=== PATIENT | male | born 1950 | race Caucasian/White ===

== ENCOUNTER → 2017-01-17 | Outpatient (CLI) | payer MEDICARE ==
--- NOTE | 2017-01-17 21:09 | CT ---
EXAMINATION TYPE: CT angio neck DATE OF EXAM: 01/17/2017 HISTORY: Carotid stenosis. COMPARISON: NONE CT DLP: 539.00 mGycm. Automated Exposure Control for Dose Reduction was Utilized. TECHNIQUE: CTA scan of the neck is performed with IV Contrast, patient injected with 65 mL of Omnipa que 350, axial images are obtained, coronal and sagittal reformatted images are reviewed. Three-D rec onstructed images are created on an independent workstation and reviewed. FINDINGS: There is opacification of the right maxillary sinus. There is arterial flow in the common internal and external carotid arteries bilaterally. There is sig nificant narrowing of the lumen of the proximal left common carotid artery. There is normal branching pattern of the great vessels on the aortic arch. There is bilateral arterial flow in the vertebral a rteries. There is a segment of the distal right common carotid artery with significant luminal narrowing. Ther e is intraluminal thrombus. IMPRESSION: There is severe right maxillary sinusitis. There is a 3 cm segment of thrombus in the distal right common carotid artery with lumen narrowing of more than 80%. There is a 3 cm segment of left mid common carotid artery with luminal narrowing of 60-70% due to thr ombus. There is bilateral redundant distal internal carotid arteries at the skull base without eviden ce of stenosis.
== END | disposition home or self-care (01) ==
LOC: RADCTMAIN 17:00
PROVIDERS: ATTEND Internal Medicine Interventional Cardiology
DX: I65.22 Occlusion and stenosis of left carotid artery (principal)
CPT/HCPCS: 70498; Q9967

== ENCOUNTER 2020-12-29 11:42 | Emergency (ER) | payer MEDICARE ==
[2020-12-29 11:48] VITALS: TEMP 98
--- NOTE | 2020-12-29 13:34 | ED ---
ENT HPI - General Chief complaint: ENT Stated complaint: Unable to Speak (Swallowed Prosthetic) Time Seen by Provider: 12/29/20 13:11 Source: patient, family, RN notes reviewed Mode of arrival: ambulatory Limitations: language barrier (Tracheostomy), physical limitation - History of Present Illness Initial comments: 70-year-old white male patient alert and oriented 4 sitting in the chair at bedside states that he was cleaning his tracheostomy and the collar came off and he ingested it. Patient is not sure if he actually swallowed it or if it is st uck in his trachea. Patient states for several hours had been trying to pick at it to see if he can get it out himself but caused some bleeding. Patient denies any shortness of breath or chest pain. Denies any cough. Patient states he called Dr. Bruce who told him to come to the emergency room. Oxygen saturation 89% patient states his oxygen level is normally low. Patient has a history of vocal cord cancer, with tracheotomy, diabetes, hypertension, and coronary artery disease. Patient states pain is 2 out of 10 at this time there is no active bleeding MD complaint: foreign body (Ingestion of the plastic collar of his tracheostomy) -: hour(s) (4) Severity: mild Severity scale (1-10): 2 Quality: aching Consistency: constant Improves with: none Worsens with: other (Trying to get the foreign body out) - Related Data Home Medications Medication Instructions Recorded Confirmed Ascorbic Acid [Vitamin C] 500 mg PO DAILY PRN 01/02/16 12/29/20 Cholecalciferol [Vitamin D3 (25 1,000 unit PO DAILY 01/02/16 12/29/20 Mcg = 1000 Iu)] Cyanocobalamin [Vitamin B-12] 500 mcg PO DAILY 01/02/16 12/29/20 Metoprolol Tartrate [Lopressor] 25 mg PO BID 01/02/16 12/29/20 Omeprazole 20 mg PO HS 01/02/16 12/29/20 hydroCHLOROthiazide [Hydrodiuril] 25 mg PO DAILY 01/02/16 12/29/20 lisinopriL [Zestril] 20 mg PO BID 01/02/16 12/29/20 metFORMIN HCL [Glucophage] 1,000 mg PO AC-BID 01/02/16 12/29/20 Apixaban [Eliquis] 5 mg PO BID 12/29/20 12/29/20 Aspirin EC [Ecotrin] 325 mg PO DAILY 12/29/20 12/29/20 Atorvastatin [Lipitor] 20 mg PO DAILY 12/29/20 12/29/20 Clopidogrel [Plavix] 75 mg PO DAILY 12/29/20 12/29/20 Folic Acid 1 mg PO DAILY 12/29/20 12/29/20 Glimepiride [Amaryl] 1 mg PO AC-BRKFST 12/29/20 12/29/20 LORazepam [Ativan] 1 mg PO DAILY PRN 12/29/20 12/29/20 Loperamide [Imodium] 2 mg PO QID PRN 12/29/20 12/29/20 Potassium Unknown Dose 1 tab PO DAILY 12/29/20 12/29/20 gemfibroziL [Lopid] 600 mg PO AC-BID 12/29/20 12/29/20 Allergies Allergy/AdvReac Type Severity Reaction Status Date / Time iodine Allergy Nausea & Verified 12/29/20 13:41 Vomiting Review of Systems ROS Statement: Those systems with pertinent positive or pertinent negative responses have been documented in the HPI. ROS Other: All systems not noted in ROS Statement are negative. 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 History of Any Multi-Drug Resistant Organisms: None Reported Past Surgical History: Joint Replacement, Orthopedic Surgery Additional Past Surgical History / Comment(s): trach/stoma, larygectomy, surgical procedure so he can speak, carpal tunnel release L wrist, proximal carpectomy R side, surgery to remove scar tissue from laryngectomy-was having difficulty swallowing, colonoscopies, total L knee replacement, tendon repair L foot due to severing. Past Anesthesia/Blood Transfusion Reactions: Postoperative Nausea & Vomiting (PONV) Past Psychological History: No Psychological Hx Reported Past Alcohol Use History: None Reported Past Drug Use History: None Reported - Past Family History Father Family Medical History: Myocardial Infarction (NM) Additional Family Medical History / Comment(s): Father at age 57 from a NM Mother Family Medical History: No Reported History Additional Family Medical History / Comment(s): Mother is 95 yrs old. She still drives. General Exam Limitations: physical limitation General appearance: alert, in no apparent distress Head exam: Present: atraumatic, normocephalic, normal inspection Eye exam: Present: normal appearance, EOMI Pupils: Present: normal accommodation ENT exam: Present: normal oropharynx (.), other (Small clots noted to the back of trachea utilized through tracheostomy) Neck exam: Present: full ROM, other (Tracheostomy without trach insert) Respiratory exam: Present: normal lung sounds bilaterally. Absent: respiratory distress, wheezes, rales, rhonchi, stridor, chest wall tenderness, accessory muscle use, decreased breath sounds Cardiovascular Exam: Present: regular rate, normal rhythm, normal heart sounds. Absent: systolic murmur, diastolic murmur, rubs, gallop, clicks GI/Abdominal exam: Present: soft, normal bowel sounds. Absent: distended, tenderness, guarding, rebound, rigid Extremities exam: Present: normal inspection, full ROM, normal capillary refill. Absent: tenderness, pedal edema, joint swelling, calf tenderness Back exam: Absent: tenderness, CVA tenderness (R), CVA tenderness (L) Neurological exam: Present: alert, oriented X3, CN II-XII intact Psychiatric exam: Present: normal affect, normal mood, anxious Skin exam: Present: warm, dry, intact, normal color. Absent: rash, cyanosis, diaphoretic, pallor, mottled Course Vital Signs 12/29/20 12/29/20 11:45 14:15 Temperature 98.0 F Pulse Rate 68 62 Respiratory 18 20 Rate Blood Pressure 180/92 122/80 O2 Sat by Pulse 89 L 94 L Oximetry Medical Decision Making - Medical Decision Making Patient in no respiratory distress, oxygen saturation 94% on room air. There is no active bleeding from the tracheostomy site. Spoke with anesthesiology who was unable to assist in foreign body removal, spoke with Dr. Thomas with surgery who deferred to pulmonology. Dr. Samuels recommends transfer patient. Spoke with Dr. Bruce at 1703 who agrees to transfer patient to [facility] as he is unable to come in and see patient. Patient agreeable to this plan of care. Patient accepted by Dr. Mims at [facility]. Case discussed with Dr. Hernandez. - Lab Data Lab Results 12/29/20 12/29/20 Range/Units 13:52 15:05 POC Glucose (mg/dL) 72 L 97 (75-99) mg/dL POC Glu [employer]ing [employer] ID Zoë Jensen Danielle Disposition Clinical Impression: Tracheal foreign body Disposition: OTHER INSTITUTION NOT DEFINED Condition: Fair Instructions (If sedation given, give patient instructions): Foreign Body Ingestion (ED) Is patient prescribed a controlled substance at d/c from ED?: No Referrals: Lg Rivera, [Primary Care Provider] - 1-2 days - Out of Hospital Transfer - Req. Specs Out of Hospital Transfer - Requested Specifics: Other Emergency Center ([facility])
[2020-12-29 13:53] LABS: Glucose,Whole Blood 72 mg/dL (75-99)
[2020-12-29] MEDS ORDERED: DEXTROSE 50% SYRINGE 50 ML IVP STA (14:07)
--- NOTE | 2020-12-29 14:37 | XR ---
EXAMINATION TYPE: XR abdomen 2V DATE OF EXAM: 12/29/2020 2:29 PM CLINICAL HISTORY: Ingestion of foreign plastic body TECHNIQUE: Single supine KUB image of the abdomen is obtained. COMPARISON: None. FINDINGS: There is no evidence of radiopaque foreign body on this radiographic study. No dilated loop s of large or small bowel to suggest bowel obstruction. Stool and gas are scattered throughout the co nadir. There is a moderate stool ball in the rectum. Lung bases are clear. Degenerative changes of the lumbar spine. IMPRESSION: 1. No evidence of radiopaque foreign body is seen. No evidence of bowel obstruction. Nonspecific, non obstructive bowel gas pattern.
--- NOTE | 2020-12-29 14:38 | XR ---
EXAMINATION TYPE: XR chest 2V DATE OF EXAM: 12/29/2020 COMPARISON: 01/02/2016 HISTORY: Ingestion of foreign body plastic TECHNIQUE: Frontal and lateral views of the chest are obtained. FINDINGS: Heart size is mildly enlarged, stable. No pleural effusion, focal consolidation or pneumot horax. No radiopaque foreign bodies seen projecting over the chest. Findings are stable. Degenerative changes of the thoracic spine. IMPRESSION: 1. No acute pulmonary disease. 2. No evidence of radiopaque foreign body is seen.
[2020-12-29 15:06] LABS: Glucose,Whole Blood 97 mg/dL (75-99)
--- NOTE | 2020-12-29 16:34 | XR ---
Soft tissue neck HISTORY: Tracheostomy tube, foreign body 2 views of the soft tissue of the neck are submitted. There is prominence of the pharyngeal airway. Bilateral carotid artery stents are suspected. Degenera tive disc changes are present in the visualized spine. Vaguely dense foreign body is present in the m idline possibly relating to patient's tracheostomy measuring 2.2 cm in cephalad to caudal dimension b y partially 5 mm in transverse dimension. Tracheostomy device is thought to be superimposed of the tr achea on the lateral view. No other evident radiopaque foreign body. IMPRESSION: Foreign bodies as described.
[2020-12-29 18:36] VITALS: BP 122/78; PULSE 58; RESP 18
== END 2020-12-29 18:34 | disposition other institution (70) ==
LOC: EC 11:42
DX: T18.9XXA Foreign body of alimentary tract, part unspecified, initial encounter (principal); I25.10 Atherosclerotic heart disease of native coronary artery without angina pectoris; E11.40 Type 2 diabetes mellitus with diabetic neuropathy, unspecified; E78.5 Hyperlipidemia, unspecified; I10 Essential (primary) hypertension; Z79.01 Long term (current) use of anticoagulants; Z79.02 Long term (current) use of antithrombotics/antiplatelets; Z79.82 Long term (current) use of aspirin; Z79.84 Long term (current) use of oral hypoglycemic drugs; Z85.21 Personal history of malignant neoplasm of larynx
CPT/HCPCS: 36415; 70360; 71046; 74019; 96374; 99284